=== PATIENT | female | born 1960 | race Caucasian/White ===

== ENCOUNTER 2018-05-07 18:00 | Emergency (ER) | payer BC ==
[~2018-05-07] VITALS: Ht 165.1 cm; Wt 61.4 kg
[2018-05-07 18:02] VITALS: BP 139/66; Ht 165.1 cm; Wt 61.4 kg
== END 2018-05-07 19:50 | disposition home or self-care (01) ==
LOC: D.ER 18:00
DX: T78.40XA Allergy, unspecified, initial encounter (principal); X58.XXXA Exposure to other specified factors, initial encounter